=== PATIENT | female | born 1970 | race Two or more races ===

== ENCOUNTER 2017-02-04 10:55 | Day surgery (SDC) | payer OTHER ==
[2017-02-02 15:13] VITALS: BMI 33.9
[2017-02-04] MEDS ORDERED: LIDOCAINE 1%/EPI 1:100000 (50 ML MULTI DOSE VIAL) ONE (15:45)
[2017-02-04] MEDS ORDERED: BUPIVACAINE HCL/PF 0.5% (5MG/ML) 10 ML VIAL ONE (15:45)
[2017-02-04] MEDS ORDERED: PROPOFOL 20 ML ONE ×6 (15:47→16:59)
[2017-02-04] MEDS ORDERED: MIDAZOLAM HCL 2 MG/2 ML SINGLE DOSE VIAL ONE (15:47)
[2017-02-04] MEDS ORDERED: LIDOCAINE 1%/EPI 1:100000 (20 ML MULTI DOSE VIAL) INF ONE ×2 (16:38→17:01)
[2017-02-04] MEDS ORDERED: BUPIVACAINE HCL/PF 0.5% (5MG/ML) 10 ML VIAL IJ ONE ×2 (16:38→17:01)
[2017-02-04] MEDS ORDERED: BACITRACIN 15 GM TUBE TOPICAL OINTMENT ONE (17:05)
[2017-02-04] MEDS ORDERED: ONDANSETRON 4 MG/2 ML VIAL IVPUSH PRN (17:49)
[2017-02-04] MEDS ORDERED: ACETAMINOPHEN 1000 MG/100 ML VIAL (NON FORMULARY) IVPB PRN (17:54)
[2017-02-04] MEDS ORDERED: LACTATED RINGERS SOLUTION 1,000 ML IV SCH (18:00)
[2017-02-04] MEDS ORDERED: OXYCODONE/APAP 5/325MG COMBO TABLET PO PRN (18:05)
[2017-02-04] MEDS ORDERED: oxyCODONE HCL 5 MG TABLET PO PRN (18:16)
[2017-02-04] MEDS ORDERED: ACETAMINOPHEN 325 MG TABLET (FP) PO PRN (18:16)
[2017-02-04 19:00] VITALS: TEMP 98
[2017-02-04] MEDS ORDERED: ACETAMINOPHEN 325 MG TABLET (FP) ONE (19:02)
[2017-02-04 19:48] VITALS: BP 138/80; PULSE 98
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
--- NOTE | 2017-02-09 12:58 | PATH ---
Surgical Pathology Report Patient Name: HALINA KRAFT Med. Rec. #: [id number] /Age/Gender: 1970 (Age: 46) / F Account: [id number] Location: [facility] SURGICAL Taken: 02/07/2017 Received: 02/07/2017 Reported: 02/09/2017 Physicians: Flip Cervantes M.D. Specimen(s) Received A: SCAR TISSUE FROM SCALP B: TUMOR RIGHT LOWER LEG Clinical History Scar of the scalp, right lower extremity tumor Final Diagnosis A. SKIN, SCALP, SCAR TISSUE, EXCISION: BENIGN SKIN WITH DERMAL SCAR WITH HYPERTROPHIC FEATURES. B. SKIN, RIGHT LOWER LEG, TUMOR, EXCISIONAL BIOPSY: CONSISTENT WITH DERMATOFIBROMA (SEE COMMENT). Comment: Immunohistochemical stains performed at [place], [place] ([id number]) on block B1 and interpreted [facility] show the lesional cells are positive for factor XIIIa immunostain, negative for HHV8 immunostain; CD34 shows nonspecific reactivity. These results are supportive of the interpretation above. Electronically Signed Lloyd Caceres M.D. Gross Description A. Received in formalin labeled "scar tissue from scalp" is a 4.8 x 1.0 cm ahumada, elliptical, unoriented portion of skin excised to a depth of 1.0 cm. No definite epidermal lesion is identified. The specimen is inked green and serially sectioned. Electrophonic Engineer sections are submitted in one cassette. B. Received in formalin labeled "tumor of the right lower leg" is a 0.6 cm in diameter ahumada, circular skin punch excised to a depth of 0.3 cm. The base is inked green and the specimen is bisected. The specimen is entirely submitted in one cassette. /02/07/2017 saudi02/07/2017
== END 2017-02-04 19:48 | disposition home or self-care (01) ==
LOC: JASU-SURG 10:55
PROVIDERS: ATTEND Plastic Surgery
PROC: 0JBQ0ZZ Excision of Right Foot Subcutaneous Tissue and Fascia, Open Approach (ICD-10-PCS; 2017-02-04)
PROC: 0HB0XZZ Excision of Scalp Skin, External Approach (ICD-10-PCS; principal; 2017-02-04 13:00)
DX: L91.0 Hypertrophic scar (principal); D23.71 Other benign neoplasm of skin of right lower limb, including hip
CPT/HCPCS: 84703; 88304-TC; 88305-TC; 94760

== ENCOUNTER 2017-06-13 05:40 | Day surgery (SDC) | payer BC ==
[2017-06-10 13:40] VITALS: BMI 33.9
[2017-06-13] MEDS ORDERED: MIDAZOLAM HCL 2 MG/2 ML SINGLE DOSE VIAL ONE (11:39)
[2017-06-13] MEDS ORDERED: SUCCINYLCHOLINE CHLORIDE 200 MG/10 ML VIAL ONE (11:39)
[2017-06-13] MEDS ORDERED: PROPOFOL 20 ML ONE ×2 (11:39)
[2017-06-13] MEDS ORDERED: ROCURONIUM BROMIDE 50 MG/5 ML VIAL ONE (11:39)
[2017-06-13] MEDS ORDERED: LIDOCAINE HCL/PF 2% SDV 5ML VIAL ONE (11:51)
[2017-06-13] MEDS ORDERED: ceFAZolin SODIUM 1 GM VIAL ONE (11:56)
[2017-06-13] MEDS ORDERED: DEXAMETHASONE SOD PHOSPHATE 4 MG/1 ML VIAL ONE (11:56)
[2017-06-13] MEDS ORDERED: NEOSTIGMINE METHYLSULFATE 0.5 MG/ML - 10 ML MDV ONE (12:21)
[2017-06-13] MEDS ORDERED: GLYCOPYRROLATE 0.2 MG/1 ML VIAL ONE (12:21)
[2017-06-13] MEDS ORDERED: ONDANSETRON 4 MG/2 ML VIAL IVPUSH PRN (12:49)
[2017-06-13] MEDS ORDERED: oxyCODONE HCL 5 MG TABLET PO PRN (12:49)
[2017-06-13] MEDS ORDERED: LACTATED RINGERS SOLUTION 1,000 ML IV SCH (13:00)
[2017-06-13] MEDS ORDERED: IBUPROFEN 800 MG/8 ML IJ IVPB PRN (13:18)
[2017-06-13] MEDS ORDERED: IBUPROFEN 400 MG TABLET (FP) PO PRN (13:18)
[2017-06-13] MEDS ORDERED: ACETAMINOPHEN 325 MG TABLET (FP) PO PRN (13:18)
--- NOTE | 2017-06-13 13:18 | HP ---
History & Physical Update - History History: No Change - Physical Physical: No Change - Assessment Assessment: No Change - Plan Plan: No Change
--- NOTE | 2017-06-13 13:24 | OP ---
Operative Note - Note: Operative Date: 06/13/17 Pre-Operative Diagnosis: left ovarian cyst Operation: Laparoscopic left salpingectomy Findings: left fallopian tube cyst Leimyomatous uterus 6 cm left myoma Post-Operative Diagnosis: Same as Pre-op Surgeon: Terrie Salomon Domestic Technician: Stephanie Higginbotham Anesthesia: General Estimated Blood Loss (mls): 3 Operative Report Dictated: Yes
[2017-06-13 14:09] VITALS: TEMP 98.2
[2017-06-13] MEDS ORDERED: ONDANSETRON 4 MG/2 ML VIAL ONE (14:18)
[2017-06-13] MEDS ORDERED: IBUPROFEN 400 MG TABLET (FP) PO ONE (16:40)
[2017-06-13 17:48] VITALS: BP 129/77; PULSE 96
--- NOTE | 2017-06-14 09:03 | OP ---
DATE OF OPERATION: 06/13/2017 PREOPERATIVE DIAGNOSIS: Left ovarian cyst. OPERATION: Laparoscopic left salpingectomy. POSTOPERATIVE DIAGNOSIS: Tubal cyst. SURGEON: Terrie Salomon MD ENT CONSULTANT: Stephanie Higginbotham DO ANESTHESIA: General. DESCRIPTION OF PROCEDURE: Patient was taken to the operating room and placed in dorsal lithotomy position, prepped and draped in the usual sterile fashion. A timeout was performed in accordance with hospital regulation. Garcias catheter was inserted into the bladder. A 5-mm umbilical incision was made. Veress needle was inserted into the cavity. Approximately 3-4 L of CO2 was insufflated in the cavity. Veress needle was then removed, and a 5-mm trocar was then inserted. Two trocars were placed, an 11 mm on the left and a 5 mm on the right. Visualization revealed a left, 6-cm serosal myoma and multiple other myomas on the uterus, as well as some small tubal cysts seen on the left ovary. A LigaSure was attached, and left salpingectomy was performed. Ovary was noted to be normal on the left and ovary was normal on the right and tube on the right was noted to be normal. After tube was removed, hemostasis was achieved. All instruments were then removed. The 11-mm was closed with Sridhar-Mala. Incision was then closed using 4-0 Biosyn in subcuticular fashion. Wound was washed and dressed. The patient tolerated the procedure well. ESTIMATED BLOOD LOSS: 3 mL Jackeline NICHOLE/[id number]
--- NOTE | 2017-06-14 13:16 | PATH ---
Surgical Pathology Report Patient Name: HALINA KRAFT [facility]. Rec. #: [id number] /Age/Gender: 1970 (Age: 47) / F Account: [id number] Location: [facility] Taken: 06/13/2017 Received: 06/13/2017 Reported: 06/14/2017 Physicians: Terrie Salomon M.D. Specimen(s) Received LEFT FALLOPIAN TUBE Clinical History Ovarian cyst, pelvic pain Final Diagnosis LEFT FALLOPIAN TUBE, SALPINGECTOMY: BENIGN FALLOPIAN TUBE WITH BENIGN SEROUS PARATUBAL CYST. Electronically Signed Dwayne Field M.D. Gross Description Received in formalin labeled "left fallopian tube," is a 5.5 cm in length fimbriated fallopian tube. The outer surface is ahumada-pink and smooth with a 0.4 cm in greatest dimension paratubal cyst attached to the fimbria. Sectioning of the fallopian tube reveals an unremarkable lumen. Separately received within the same container is a 1.5 x 0.6 x 0.5 cm additional portion of possible fimbria with a 0.4 cm in greatest dimension attached cyst. Germination Testing Manager sections are submitted in 3 cassettes as follows: 1-fimbria with paratubal cyst; 2-cross sections of fallopian tube; 3-separately received possible fimbria with attached cyst. 06/13/201706/13/2017
--- NOTE | 2017-06-14 13:40 | PN ---
Progress Note (short form) - Note Progress Note: 47F POD1 lap salpingectomy under GA-ETT. Called pt at home to follow-up on patients report of coughing blood tinged mucus this morning. Pt states that pain is well controlled, reports two episodes of coughing, and small amounts of bloody mucous each time. This has resolved, pt doesnt report any hoarseness, SOB , or throat pain. Pt denies fever.
== END 2017-06-13 17:05 | disposition home or self-care (01) ==
LOC: JASU-SURG 05:40
PROVIDERS: ATTEND Obstetrics & Gynecology
PROC: 0UB64ZZ Excision of Left Fallopian Tube, Percutaneous Endoscopic Approach (ICD-10-PCS; principal; 2017-06-13 12:00)
DX: N83.8 Other noninflammatory disorders of ovary, fallopian tube and broad ligament (principal); D25.2 Subserosal leiomyoma of uterus
CPT/HCPCS: 84703; 88305-TC; 94760

== ENCOUNTER 2018-06-20 07:08 | Day surgery (SDC) | payer BC ==
[2018-06-19 11:44] VITALS: BMI 34.9
[2018-06-20] MEDS ORDERED: TETRACAINE/BENZOCAINE/BUTAMBEN 20 GM SPR TP ONE (08:44)
[2018-06-20 12:11] VITALS: BP 147/86; PULSE 72; TEMP 97.6
--- NOTE | 2018-06-22 10:26 | OP ---
DATE OF OPERATION: 06/20/2018 SURGEON: Radha Villa MD PREOPERATIVE DIAGNOSIS: Morbid obesity. POSTOPERATIVE DIAGNOSIS: Normal gross anatomy prior to vertical sleeve gastrectomy. PROCEDURE: Upper endoscopy/esophagogastroduodenoscopy. ANESTHESIA: MAC ESTIMATED BLOOD LOSS: Zero. REASON FOR PROCEDURE: This is a 48-year-old female who is in the process for vertical sleeve gastrectomy for morbid obesity to evaluate the anatomy prior to the procedure. An upper endoscopy/endoscopy was performed. This is a patient who is awaiting a vertical sleeve gastrectomy. In order to evaluate the patient's anatomy and to evaluate anything that would preclude the upcoming vertical sleeve gastrectomy, an upper endoscopy was scheduled. The risks and benefits of the procedure were explained. These included bleeding; infection; sore throat; trauma to the teeth, gums, or oral cavity; rapid or irregular heart beat; respiratory failure; aspiration; hypotension or low blood pressure; damage to the esophagus, stomach, or nearby structures; damage to the intestines; perforation; leak; and . Patient understood and signed informed consent. DESCRIPTION OF PROCEDURE: The patient was placed in the left lateral decubitus position. The patient had signed informed consent. All mechanical and medical equipment was checked for proper function. Hand hygiene and appropriate measures for infection prevention were taken. After the risks, benefits, and alternatives of the procedure were thoroughly explained and informed consent was verified, timeout was performed. The patient was anesthetized, and the endoscope was introduced through the mouth. The endoscope was advanced into the esophagus, GE junction, stomach, up to the level of the pylorus. Gross anatomy was noted to be within normal limits without any gross lesions or ulcers that would preclude the upcoming surgery. The stomach was suctioned, and the endoscope slowly withdrawn and removed. The patient tolerated the procedure well and was transferred to the recovery room in stable condition. RADHA VILLA M.D. [id number]
== END 2018-06-20 10:10 | disposition home or self-care (01) ==
LOC: JASU-ENDO 07:08
PROVIDERS: ATTEND Surgery
PROC: 0DJ08ZZ Inspection of Upper Intestinal Tract, Via Natural or Artificial Opening Endoscopic (ICD-10-PCS; principal; 2018-06-20 08:00)
DX: Z01.818 Encounter for other preprocedural examination (principal); E66.01 Morbid (severe) obesity due to excess calories
CPT/HCPCS: 84703

== ENCOUNTER 2018-08-01 06:32 | Inpatient (IN) | payer BC ==
[2018-07-31 13:59] VITALS: BMI 34.9
[2018-08-01] MEDS ORDERED: BUPIVACAINE HCL/PF 0.5% (5MG/ML) 10 ML VIAL ONE (07:03)
[2018-08-01] MEDS ORDERED: LIDOCAINE HCL/PF 2% SDV 5ML VIAL ONE (07:07)
[2018-08-01] MEDS ORDERED: SUCCINYLCHOLINE CHLORIDE 200 MG/10 ML VIAL ONE (07:07)
[2018-08-01] MEDS ORDERED: ROCURONIUM BROMIDE 50 MG/5 ML VIAL ONE (07:07)
[2018-08-01] MEDS ORDERED: DEXAMETHASONE SOD PHOSPHATE 4 MG/1 ML VIAL ONE ×2 (07:07→10:36)
[2018-08-01] MEDS ORDERED: PROPOFOL 20 ML ONE ×2 (07:07→09:02)
[2018-08-01] MEDS ORDERED: fentaNYL CITRATE 250 MCG/5 ML VIAL ONE (07:07)
[2018-08-01] MEDS ORDERED: DEXAMETHASONE SOD PHOSPHATE/PF 10 MG/ML SDV ONE (07:51)
[2018-08-01] MEDS ORDERED: ROPIVACAINE HCL 0.5% 30ML VIAL ONE (07:51)
[2018-08-01] MEDS ORDERED: MIDAZOLAM HCL 2 MG/2 ML SINGLE DOSE VIAL ONE ×2 (07:53)
--- NOTE | 2018-08-01 07:57 | HP ---
Admitting History and Physical - Admission Chief Complaint: Morbid obesity History Source: Patient Limitations to Obtaining History: No Limitations - Past Medical History Cardiovascular: Yes: HTN, Hyperlipdemia Pulmonary: Yes: Sleep Apnea ...LMP: 02/22/18 - Smoking History Smoking history: Never smoked Aproximately how many cigarettes per day: 0 - Alcohol/Substance Use Hx Alcohol Use: No Home Medications - Allergies Allergies/Adverse Reactions: Allergies Allergy/AdvReac Type Severity Reaction Status Date / Time EGG WHITE Allergy Intermediate "ITCHY" Uncoded 08/01/18 07:26 SEASONAL Allergy Uncoded 08/01/18 07:26 - Home Medications Home Medications: Ambulatory Orders Aspirin [ASA -] 81 mg PO DAILY 07/02/13 Ubidecarenone [Co Q-10] 10 mg PO DAILY 07/02/13 Rosuvastatin Calcium [Crestor] 5 mg PO HS 03/11/14 Cholecalciferol (Vitamin D3) [Vitamin D3 -] 1,000 unit PO DAILY 06/10/17 Ibuprofen [Motrin -] 600 mg PO QID PRN #28 tablet 06/13/17 Icosapent Ethyl [Vascepa] 2 gm PO BID 06/19/18 Family Disease History - Family Disease History Family History: Denies Review of Systems - Review of Systems Constitutional: denies: Chills, Fever Neck: reports: No Symptoms Cardiovascular: reports: No Symptoms Respiratory: reports: No Symptoms Gastrointestinal: reports: No Symptoms Neurological: reports: No Symptoms Pain Intensity: 0 Physical Examination Vital Signs: Vital Signs Temperature 98.2 F 08/01/18 07:24 Pulse Rate 84 08/01/18 07:24 Respiratory Rate 20 08/01/18 07:24 Blood Pressure 129/74 08/01/18 07:24 O2 Sat by Pulse Oximetry (%) 98 08/01/18 07:18 Constitutional: Yes: No Distress Cardiovascular: Yes: WNL Respiratory: Yes: WNL Gastrointestinal: Yes: Soft, Abdomen, Obese Neurological: Yes: Alert, Oriented Problem List - Problems (1) Morbid obesity due to excess calories Code(s): E66.01 - MORBID (SEVERE) OBESITY DUE TO EXCESS CALORIES Assessment/Plan Morbid obesity For laparoscopic possible open vertical sleeve gastrectomy possible liver biopsy , EGD
[2018-08-01] MEDS ORDERED: ceFAZolin SODIUM 1 GM VIAL ONE (09:17)
[2018-08-01] MEDS ORDERED: GLYCOPYRROLATE 0.2 MG/1 ML VIAL ONE (10:34)
[2018-08-01] MEDS ORDERED: NEOSTIGMINE METHYLSULFATE 0.5 MG/ML - 10 ML MDV ONE (10:34)
[2018-08-01] MEDS ORDERED: HYDROmorphone HCl 2 MG/ML VIAL IVPB PRN (10:49)
--- NOTE | 2018-08-01 10:56 | OP ---
Operative Note - Note: Operative Date: 08/01/18 Pre-Operative Diagnosis: Morbid obesity. Hypertension Operation: Diagnositc laparoscopy. Laparoscopic vertical sleeve gastrectomy, wedge liver biopsy. EGD Post-Operative Diagnosis: Other (Morbid obesity, hypertension, hepatomegaly) Surgeon: Jerrod Villa Confectionery Drops Machine Operator: Charlotte Saunders Anesthesia: General Specimens Removed: Greater curvature of stomach. Liver biopsy Estimated Blood Loss (mls): 30 Drains & Tubes with Location: 36 fr Bougie Operative Report Dictated: Yes
[2018-08-01] MEDS ORDERED: METOCLOPRAMIDE HCL INJECTION 10 MG/2 ML VIAL IVPUSH SCH (11:00)
--- NOTE | 2018-08-01 11:09 | SURG ---
Surgery Physical Metallurgist Note Physical Metallurgist: Charlotte Saunders PA-C Date of Service: 08/01/18 Diagnosis: Morbid obesity. Hypertension Procedure: Diagnositc laparoscopy. Laparoscopic vertical sleeve gastrectomy, wedge liver biopsy. EGD I was present for the entirety of the operative procedure. For further detail, please refer to operative report. Visit type - Case Type Case Type: Scheduled - Emergency Emergency Visit: No - New patient This patient is new to me today: Yes Date on this admission: 08/01/18
--- NOTE | 2018-08-01 11:28 | SPEC ---
DATE OF OPERATION: 08/01/2018 SURGEON: Radha Villa MD PREOPERATIVE DIAGNOSIS: Morbid obesity, uncontrolled hypertension. POSTOPERATIVE DIAGNOSIS: Morbid obesity, uncontrolled hypertension, as well as hepatomegaly. PROCEDURE: 1. Diagnostic laparoscopy. 2. Laparoscopic vertical sleeve gastrectomy. 3. Laparoscopic wedge liver biopsy. 4. Upper endoscopy/esophagogastroduodenoscopy. 5. Oversewing of gastric staple line. BOUGIE: Size 36 Kinyarwanda. ESTIMATED BLOOD LOSS: 30 mL. DRAINS: None. ANESTHESIA: GET. SPECIMENS: 1. Greater curvature of the stomach. 2. Liver biopsy. REASON FOR PROCEDURE: This is a 48-year-old female who presented to the office for evaluation for weight loss options. After describing different options, she decided to proceed with laparoscopic possible open vertical sleeve gastrectomy, possible liver biopsy and upper endoscopy. RISKS AND BENEFITS: After describing the different options for weight loss management, the patient decided to proceed with a laparoscopic, possible open vertical sleeve gastrectomy. The patient was seen by the respective subspecialties and cleared for surgery. The risks and benefits of the procedure were explained. These included bleeding, infection, hernia, UT, DVT, PE, injury to surrounding structures including the liver, colon, bowel, spleen, esophagus, vessel injury, nerve injury, weight regain, gastric leak, staple line leak, sleeve leak, obstruction, vitamin deficiency, hair loss and as some of the possible complications. The patient understood and signed informed consent. DESCRIPTION OF PROCEDURE: The patient was placed supine on the operating room table. The patient underwent general endotracheal intubation. The arms were brought out at 90 degrees and secured. A footboard was placed and the legs were secured laterally with padding. The abdomen was prepped and draped in the usual sterile fashion. A timeout was performed. An incision was made in the left upper quadrant and a Veress needle inserted. Pneumoperitoneum was established. Subsequently, the Veress needle was removed and a 5-mm trocar was placed under direct visualization with the laparoscope. The laparoscopic camera was then inserted and inspection of the abdominal cavity was performed. An incision was then made in the supraumbilical area and a 15-mm trocar was placed under direct visualization. A 5-mm trocar was then placed in the right upper quadrant and a 5-mm trocar was placed below the left subcostal margin. A stab wound was made in the subxiphoid area and a Nereida clamp inserted and removed to dilate the tract. A Nano liver retractor was inserted. The post was secured at the bedside by the nursing staff. The patient was placed in steep reverse Trendelenburg position and the Nano liver retractor was used to secure the liver towards the anterior abdominal wall. The pylorus was identified and 6 cm proximal to it, the lesser sac was entered using the LigaSure device. All lateral attachments to the greater curvature of the stomach, including the short gastric vessels, were ligated using the LigaSure device toward the gastrosplenic and gastrophrenic ligaments. Once this was done in its entirety, it was confirmed that all tubes within the nasal or oropharyngeal cavity, including a temperature probe, was removed by Anesthesia. The bougie was then inserted by Anesthesia. Transection of the stomach was then begun staying adjacent to the bougie but away from the angularis. Transection of the stomach was performed near the portion of the stomach where the lesser sac was entered. Two laparoscopic Endo-SHANE black jessica were used at this location. Laparoscopic Endo SHANE purple staple loads were then used for the remainder of the transection until the greater curvature of the stomach was fully transected. This was done staying close to the bougie. Care was taken to stay away from the angle of His cephalad. The staple line was then inspected. Hemostasis was identified. A leak test was then performed. It was clamped distally to the staple line. Irrigation solution was placed in the left upper quadrant and air was insufflated by Anesthesia into the sleeve. No leaks were identified. No obstruction was identified. This was done through the entirety of the staple line. In addition, an upper endoscopy was performed. The endoscope was placed into the patients mouth and the entirety of the esophagus, GE junction, gastric pouch and staple line were inspected. No obstruction or leak was noted. The stomach was suctioned and the endoscope removed fully intact. At this point, the irrigation solution was suctioned and again, hemostasis was noted. A wedge liver biopsy was then performed. The left lobe of the liver was identified and a portion of the edge was grasped. Using electrocautery, a wedge of the liver was excised. This was removed and sent off the field as specimen. Hemostasis at the site of the wedge liver biopsy was attained using electrocautery. The 15-mm supraumbilical trocar was then removed and the greater curvature specimen removed from the site using a sponge stick alexander. The specimen was inspected and a Veress needle inserted. The specimen insufflated adequately and no leak was identified. The staple line was noted to be intact. A Sridhar-Mala device was then used to close the fascia with a 0 Vicryl suture at the site. Again, hemostasis was noted. The Nano liver retractor was then removed under direct visualization. Pneumoperitoneum was desufflated and the fascial sutures were secured. Hemostasis was noted at all incision sites and Marcaine was injected at all incision sites. All incision sites were closed using 4-0 Biosyn. Sterile dressings were applied. The patient tolerated the procedure well and was transferred to the recovery room in stable condition. The patient was transferred to telemetry for further monitoring. RADHA VILLA M.D. [id number]
[2018-08-01 11:42] LABS: HEMATOCRIT 39.3 % (32.4-45.2); HEMOGLOBIN 13.1 GM/dL (10.7-15.3); MCH 25.2 pg (25.7-33.7); MCHC 33.2 g/dl (32.0-36.0); MEAN PLT VOLUME 7.7 fl (7.5-11.1); PLATELET COUNT 238 K/MM3 (134-434); RBC 5.17 M/mm3 (3.60-5.2); RDW 15.1 % (11.6-15.6); WHITE BLOOD COUNT 7.7 K/mm3 (4.0-10.0)
[2018-08-01] MEDS: ONDANSETRON 4 MG/2 ML VIAL IVPUSH SCH ×4 (12:00→23:35)
[2018-08-01 12:16] LABS: ALBUMIN 3.8 g/dl (3.4-5.0); ALK PHOS 47 U/L (45-117); ANION GAP 9 MMOL/L (8-16); BILIRUBIN,TOTAL 0.4 mg/dL (0.2-1); BLOOD UREA NITROGEN 16 mg/dL (7-18); CALCIUM 8.2 mg/dL (8.5-10.1); CHLORIDE 108 mmol/L (98-107); CO2 24 mmol/L (21-32); CREATININE 0.8 mg/dL (0.55-1.3); GLUCOSE,RANDOM 149 mg/dL (74-106); POTASSIUM 4.1 mmol/L (3.5-5.1); SGOT/AST 82 U/L (15-37); SGPT/ALT 85 U/L (13-61); SODIUM 141 mmol/L (136-145); TOT PROT 7.2 g/dl (6.4-8.2)
[2018-08-01] MEDS: ACETAMINOPHEN 1000 MG/100 ML VIAL (NON FORMULARY) IVPB SCH ×3 (12:20→23:30)
[2018-08-01] MEDS ORDERED: ADENOSINE 6 MG/2 ML VIAL IVPUSH ONE (13:45)
[2018-08-01] MEDS: SODIUM CHLORIDE 1,000 ML IV SCH (14:45)
--- NOTE | 2018-08-01 15:26 | PN ---
Progress Note (short form) - Note Progress Note: Called to the PACU earlier for an episode of SVT post-op. Pt. otherwise stable with no chest pain or shortness of breath. Adenosine 6mg, 6mg, 12mg given with sustained SVT. Esmlol 10mg given with reversion to sinus rhythm. Pt.s healthcare consultant made aware.
--- NOTE | 2018-08-01 15:33 | EKG ---
Test Reason : Blood Pressure : / mmHG Vent. Rate : 185 BPM Atrial Rate : 185 BPM P-R Int : 130 ms QRS Dur : 080 ms QT Int : 246 ms P-R-T Axes : 021 -07 203 degrees QTc Int : 431 ms SUPRAVENTRICULAR TACHYCARDIA WITH 2:1 A-V CONDUCTION LOW VOLTAGE QRS MARKED ST ABNORMALITY, POSSIBLE INFEROLATERAL SUBENDOCARDIAL INJURY ABNORMAL ECG WHEN COMPARED WITH ECG OF 12-MAR-2014 07:34, AL INTERVAL HAS DECREASED VENT. RATE HAS INCREASED BY [address] NOW DEPRESSED IN INFERIOR LEADS ST NOW DEPRESSED IN ANTEROLATERAL LEADS T WAVE INVERSION NOW EVIDENT IN ANTEROLATERAL LEADS Confirmed by Alonzo Mckeon ([id number]) on 08/01/2018 3:33:27 PM Referred By: Jerrod Villa Confirmed By:Alonzo Mckeon
[2018-08-01] MEDS: FAMOTIDINE 20 MG/50 ML IVPB 20 MG/50 ML MG IVPB SCH (22:36)
[2018-08-01] MEDS: METOCLOPRAMIDE HCL INJECTION 10 MG/2 ML VIAL IVPUSH SCH (22:36)
[2018-08-01] MEDS: ENOXAPARIN NA (PORCINE) 40 MG/0.4 ML DISP.SYRIN SQ SCH (22:36)
[2018-08-02] MEDS: METOCLOPRAMIDE HCL INJECTION 10 MG/2 ML VIAL IVPUSH SCH ×3 (04:30→14:51)
[2018-08-02] MEDS: ONDANSETRON 4 MG/2 ML VIAL IVPUSH SCH ×4 (04:30→14:51)
[2018-08-02] MEDS: ACETAMINOPHEN 1000 MG/100 ML VIAL (NON FORMULARY) IVPB SCH (06:54)
[2018-08-02 07:28] LABS: HEMATOCRIT 35.5 % (32.4-45.2); HEMOGLOBIN 11.9 GM/dL (10.7-15.3); MCH 25.5 pg (25.7-33.7); MCHC 33.6 g/dl (32.0-36.0); MEAN CELL VOLUME 75.9 fl (80-96); MEAN PLT VOLUME 7.7 fl (7.5-11.1); PLATELET COUNT 246 K/MM3 (134-434); RBC 4.68 M/mm3 (3.60-5.2); RDW 14.8 % (11.6-15.6)
[2018-08-02 08:17] LABS: ALBUMIN 3.2 g/dl (3.4-5.0); ALK PHOS 40 U/L (45-117); ANION GAP 9 MMOL/L (8-16); BILIRUBIN,TOTAL 0.6 mg/dL (0.2-1); BLOOD UREA NITROGEN 10 mg/dL (7-18); CALCIUM 8.1 mg/dL (8.5-10.1); CHLORIDE 104 mmol/L (98-107); CO2 25 mmol/L (21-32); CREATININE 0.7 mg/dL (0.55-1.3); GLUCOSE,RANDOM 105 mg/dL (74-106); POTASSIUM 3.8 mmol/L (3.5-5.1); SGOT/AST 43 U/L (15-37); SGPT/ALT 64 U/L (13-61); SODIUM 138 mmol/L (136-145); TOT PROT 6.5 g/dl (6.4-8.2)
--- NOTE | 2018-08-02 08:30 | PN ---
Progress Note (short form) - Note Progress Note: Post op day#1.S/P Laproscopic gastric sleeve,EGD and liver biopsy under GA uneventful.Patient stable.No any anesthesia related problem.Patient Dc from the anesthesia care.
--- NOTE | 2018-08-02 08:51 | CON.CARD ---
Consult Consult Specialty:: Cardiology Referred by:: Jerrod Villa MD Reason for Consultation:: PSVT - History of Present Illness History of Present Illness: 48 yo morbid obesity, hypertension, mixed hyperlipidemia, chest pain with negative cath, diastolic dysfunction POD#1 diagnositc laparoscopy, laparoscopic vertical sleeve gastrectomy, wedge liver biopsy and EG under GA. She developed episode of SVT post-op broke with adenosine and beta lalit, was off Inderal 2 days prior to surgery. Pt remained asymptomatic and denies chest pain, dyspnea, palpitations, near or true syncope, no recurrence of PSVT on telemetry. - History Source History Provided By: Patient Limitations to Obtaining History: No Limitations - Past Medical History Cardio/Vascular: Yes: HTN, Hyperlipdemia Pulmonary: Yes: Sleep Apnea ...LMP: 02/22/18 - Alcohol/Substance Use Hx Alcohol Use: No - Smoking History Smoking history: Never smoked Aproximately how many cigarettes per day: 0 Home Medications - Allergies Allergies/Adverse Reactions: Allergies Allergy/AdvReac Type Severity Reaction Status Date / Time Egg Derived Allergy Verified 08/01/18 15:21 EGG WHITE Allergy Intermediate "ITCHY" Uncoded 08/01/18 07:26 SEASONAL Allergy Uncoded 08/01/18 07:26 - Home Medications Home Medications: Ambulatory Orders Aspirin [ASA -] 81 mg PO DAILY 07/02/13 Ubidecarenone [Co Q-10] 10 mg PO DAILY 07/02/13 Rosuvastatin Calcium [Crestor] 5 mg PO HS 03/11/14 Cholecalciferol (Vitamin D3) [Vitamin D3 -] 1,000 unit PO DAILY 06/10/17 Ibuprofen [Motrin -] 600 mg PO QID PRN #28 tablet 06/13/17 Icosapent Ethyl [Vascepa] 2 gm PO BID 06/19/18 Famotidine [Pepcid] 20 mg PO BID #60 tablet 08/01/18 Oxycodone HCl/Acetaminophen [Percocet 5-325 mg Tablet] 1 - 2 tab PO Q6H #28 tab MDD 4 08/01/18 Family Disease History - Family Disease History Family Disease History: Diabetes: Mother (Hypertension, hyperlipidemia), Heart Disease: Mother Vital Signs: Vital Signs Temperature 97.8 F 08/02/18 06:00 Pulse Rate 73 08/02/18 06:00 Respiratory Rate 20 08/02/18 06:00 Blood Pressure 133/73 08/02/18 06:00 O2 Sat by Pulse Oximetry (%) 97 08/01/18 22:00 Constitutional: Yes: No Distress, Calm Neck: Yes: Supple Respiratory: Yes: Regular, CTA Bilaterally Gastrointestinal: Yes: Normal Bowel Sounds, Soft, Abdomen, Obese Cardiovascular: Yes: Regular Rate and Rhythm JVD: No Carotid Bruit: No Heart Sounds: Yes: S1, S2 Edema: No - Other Data Labs, Other Data: CBC, BMP 08/02/18 07:00 08/02/18 07:00 Problem List - Problems (1) Status post bariatric surgery Code(s): Z98.84 - BARIATRIC SURGERY STATUS (2) Hyperlipidemia Code(s): E78.5 - HYPERLIPIDEMIA, UNSPECIFIED Qualifiers: Hyperlipidemia type: mixed hyperlipidemia Qualified Code(s): E78.2 - Mixed hyperlipidemia (3) Paroxysmal supraventricular tachycardia Code(s): I47.1 - SUPRAVENTRICULAR TACHYCARDIA (4) Hypertensive cardiovascular disease Code(s): I11.9 - HYPERTENSIVE HEART DISEASE WITHOUT HEART FAILURE Qualifiers: Heart failure presence: without heart failure Qualified Code(s): I11.9 - Hypertensive heart disease without heart failure (5) Diastolic dysfunction Code(s): I51.9 - HEART DISEASE, UNSPECIFIED (6) Morbid obesity due to excess calories Code(s): E66.01 - MORBID (SEVERE) OBESITY DUE TO EXCESS CALORIES Assessment/Plan Echo: January 05, 2018 Normal LV amd RV size and fxn, LVEF 55-60%, mild MR, mild- mod AR, mild-mod TR Stress echo: February 24, 2018 No ischemia after reaching 85% [facility]: Aug 02, 2016 Normal coronary arteries, normal LV fxn 1. PSVT->NSR 2. POD#1 Diagnositc laparoscopy, laparoscopic vertical sleeve gastrectomy, wedge liver biopsy and EGD 3. Diastolic dysfunction 4. Hypertensive cardiovascular disease 5. Hyperlipidemia P:1. Continue Inderal LA 120 bid, resume Crestor 5 qd, Vascepa 2 bid once LFTs normalize, resume ASA 81 qd once hemostasis achieved 2. Routine post-op care 3. Consider EP study, RFA as outpatient if PSVT recurs despite meds, patient has f/u with Dr. Loya. 4. Thank you for consultative opportunity
[2018-08-02] MEDS ORDERED: PT OWN MED DRAWER 7, Y5N ONE (10:14)
[2018-08-02] MEDS: FAMOTIDINE 20 MG/50 ML IVPB 20 MG/50 ML MG IVPB SCH (10:17)
[2018-08-02] MEDS: ENOXAPARIN NA (PORCINE) 40 MG/0.4 ML DISP.SYRIN SQ SCH (10:17)
[2018-08-02] MEDS: SODIUM CHLORIDE 1,000 ML IV SCH (11:58)
--- NOTE | 2018-08-02 13:07 | DS ---
Physical Exam: SUBJECTIVE: Patient seen and examined. Alert. C/o mild incisional tenderness. Adequate pain control with meds as ordered. OOB and ambulating unassisted. Had her UGI this morning which didn't show and leak, extravasation or outlet obstruction. Patient had 1 episode of PSVT in PACU... broke rhythm with Adenosine and beta heidi. Cardio consult apprecitaed. Denies n/v/f/c, CO, SOB , palpitations, DELUNA, dizzy or weak. OBJECTIVE: Vital Signs Temperature 97.9 F 08/02/18 09:05 Pulse Rate 77 08/02/18 09:05 Respiratory Rate 20 08/02/18 09:05 Blood Pressure 135/73 08/02/18 09:05 O2 Sat by Pulse Oximetry (%) 99 08/02/18 09:00 PHYSICAL EXAM GENERAL: The patient is awake, alert, and fully oriented, in no acute distress. HEAD: Normal with no signs of trauma. NECK: Trachea midline, full range of motion, supple. LUNGS: CTA bilat HEART: RRR ABDOMEN: Obese habitus. All surgical ports c/d/i. No hematoma. EXTREMITIES: 2+ pulses, warm, well-perfused, no edema. NEUROLOGICAL: Cranial nerves II through XII grossly intact. Normal speech, gait not observed. PSYCH: Normal mood, normal affect. SKIN: Warm, dry, normal turgor, no rashes or lesions noted. LABS CBC,CMP WBC 11.0 K/mm3 (4.0-10.0) H 08/02/18 07:00 RBC 4.68 M/mm3 (3.60-5.2) 08/02/18 07:00 Hgb 11.9 GM/dL (10.7-15.3) 08/02/18 07:00 Hct 35.5 % (32.4-45.2) 08/02/18 07:00 MCV 75.9 fl (80-96) L 08/02/18 07:00 MCH 25.5 pg (25.7-33.7) L 08/02/18 07:00 MCHC 33.6 g/dl (32.0-36.0) 08/02/18 07:00 RDW 14.8 % (11.6-15.6) 08/02/18 07:00 Plt Count 246 K/MM3 (134-434) 08/02/18 07:00 MPV 7.7 fl (7.5-11.1) 08/02/18 07:00 Sodium 138 mmol/L (136-145) 08/02/18 07:00 Potassium 3.8 mmol/L (3.5-5.1) 08/02/18 07:00 Chloride 104 mmol/L (98-107) 08/02/18 07:00 Carbon Dioxide 25 mmol/L (21-32) 08/02/18 07:00 Anion Gap 9 MMOL/L (8-16) 08/02/18 07:00 BUN 10 mg/dL (7-18) 08/02/18 07:00 Creatinine 0.7 mg/dL (0.55-1.3) 08/02/18 07:00 Creat Clearance w eGFR > 60 (>60) 08/02/18 07:00 Random Glucose 105 mg/dL (74-106) 08/02/18 07:00 Calcium 8.1 mg/dL (8.5-10.1) L 08/02/18 07:00 Total Bilirubin 0.6 mg/dL (0.2-1) 08/02/18 07:00 AST 43 U/L (15-37) H 08/02/18 07:00 ALT 64 U/L (13-61) H 08/02/18 07:00 Alkaline Phosphatase 40 U/L (45-117) L 08/02/18 07:00 Total Protein 6.5 g/dl (6.4-8.2) 08/02/18 07:00 Albumin 3.2 g/dl (3.4-5.0) L 08/02/18 07:00 Serum , Qual Negative 08/01/18 06:50 HOSPITAL COURSE: Date of Admission:08/01/18 Date of Discharge: 08/02/18 Patient was admitted to Med-Surg Unit s/p Laprascopic Sleeve Gastrectomy with Liver wedge biopsy. Patient had one episode of PSVT in PACU. Rhythm broken with Adenosisne and Beta Heidi. No other arrhythmias since initial event. Placed on Telemetry for continued observation. Cardio Consult was called to Dr. Dany Jauregui. He recommends the followin. Continue Inderal LA 120 bid 2. Resume Crestor 5 qd 3. Vascepa 2 bid once LFTs normalize 4. ASA 81 qd 5. Consider EP study 6. f/u with Dr. Loya as out-patient POD #1 pateint had UGI and considered negative study as evidneced by flow of contrast through pyloric sphincter...no leak/extravastion or gastric outlet obstruction. Minutes to complete discharge: 36 Visit type - Case Type Case Type: Scheduled - New patient This patient is new to me today: Yes Date on this admission: 08/02/18
--- NOTE | 2018-08-02 17:12 | PATH ---
Surgical Pathology Report Patient Name: HALINA KRAFT [facility]. Rec. #: [id number] /Age/Gender: 1970 (Age: 48) / F Account: [id number] Location: 4 W TELEMETRY U Taken: 08/01/2018 Received: 08/01/2018 Reported: 08/02/2018 Physicians: Jerrod Villa M.D. Specimen(s) Received A: GREATER CURVATURE STOMACH B: LIVER BIOPSY Clinical History Morbid obesity Final Diagnosis A. STOMACH, GREATER CURVATURE, LAPAROSCOPIC VERTICAL SLEEVE GASTRECTOMY: PORTION OF STOMACH WITH MILD CHRONIC GASTRITIS. IMMUNOHISTOCHEMICAL STAIN FOR H. PYLORI IS NEGATIVE. B. LIVER, BIOPSY: LIVER PARENCHYMA WITH MILD PATCHY STEATOSIS (~25-30%). NO INCREASE IN IRON AND FIBROSIS ON PERFORMED SPECIAL STAINS (IRON AND TRICHROME). Electronically Signed Edna Spangler M.D. Gross Description A. Received in formalin, labeled "greater curvature of stomach," is a 94 gram, 15.0 x 3.5 x 3.0 cm. portion of stomach with a stapled margin of resection. The serosa is ahumada-joshua with minimal attached fat. The mucosa is ahumada-pink with normal folds. No mucosal masses are identified. [facility] Adoles[facility]iat[facility] sections are submitted in one cassette. B. Received in formalin labeled "liver biopsy," is a 2.5 x 1.4 x 0.6 cm ahumada, irregular portion of soft tissue, consistent with a liver biopsy. Child And Adolescent Psychiatrist sections are submitted in one cassette. DL/08/01/2018 saudi08/01/2018
[2018-08-02 19:30] VITALS: BP 125/75; PULSE 77; TEMP 98
[2018-08-02] MEDS ORDERED: oxyCODONE HCL 5 MG TABLET PO PRN (19:52)
--- NOTE | 2018-08-02 19:52 | PN ---
Progress Note (short form) - Note Progress Note: POD 1 Laparoscopic vertical sleeve gastrectomy, liver biopsy, EGD Pain controlled One episode of SVT treated with medication No further episodes Cardiology consulted Recommendations include Inderal 120mg PO bidd No chest pain, dizziness, or shortness of breath No nausea Vital Signs Period Temp Pulse Resp BP Sys/Dumas Pulse Ox Last 24 Hr 97.8 F-98.3 F 71-81 18-20 125-144/73-82 97-99 Abd soft CBC,CMP WBC 11.0 K/mm3 (4.0-10.0) H 08/02/18 07:00 RBC 4.68 M/mm3 (3.60-5.2) 08/02/18 07:00 Hgb 11.9 GM/dL (10.7-15.3) 08/02/18 07:00 Hct 35.5 % (32.4-45.2) 08/02/18 07:00 MCV 75.9 fl (80-96) L 08/02/18 07:00 MCH 25.5 pg (25.7-33.7) L 08/02/18 07:00 MCHC 33.6 g/dl (32.0-36.0) 08/02/18 07:00 RDW 14.8 % (11.6-15.6) 08/02/18 07:00 Plt Count 246 K/MM3 (134-434) 08/02/18 07:00 MPV 7.7 fl (7.5-11.1) 08/02/18 07:00 Sodium 138 mmol/L (136-145) 08/02/18 07:00 Potassium 3.8 mmol/L (3.5-5.1) 08/02/18 07:00 Chloride 104 mmol/L (98-107) 08/02/18 07:00 Carbon Dioxide 25 mmol/L (21-32) 08/02/18 07:00 Anion Gap 9 MMOL/L (8-16) 08/02/18 07:00 BUN 10 mg/dL (7-18) 08/02/18 07:00 Creatinine 0.7 mg/dL (0.55-1.3) 08/02/18 07:00 Creat Clearance w eGFR > 60 (>60) 08/02/18 07:00 Random Glucose 105 mg/dL (74-106) 08/02/18 07:00 Calcium 8.1 mg/dL (8.5-10.1) L 08/02/18 07:00 Total Bilirubin 0.6 mg/dL (0.2-1) 08/02/18 07:00 AST 43 U/L (15-37) H 08/02/18 07:00 ALT 64 U/L (13-61) H 08/02/18 07:00 Alkaline Phosphatase 40 U/L (45-117) L 08/02/18 07:00 Total Protein 6.5 g/dl (6.4-8.2) 08/02/18 07:00 Albumin 3.2 g/dl (3.4-5.0) L 08/02/18 07:00 Serum , Qual Negative 08/01/18 06:50 UGI: no evidence of leak/obstruction Clears Discharge home Follow up with Cardiology as outpatient Continue Inderal PO bid Problem List - Problems (1) Morbid obesity due to excess calories Code(s): E66.01 - MORBID (SEVERE) OBESITY DUE TO EXCESS CALORIES
[2018-08-02] MEDS ORDERED: SODIUM CHLORIDE 1,000 ML IV SCH (20:00)
--- NOTE | 2018-10-06 20:31 | EKG ---
Test Reason : Blood Pressure : / mmHG Vent. Rate : 105 BPM Atrial Rate : 090 BPM P-R Int : 000 ms QRS Dur : 078 ms QT Int : 426 ms P-R-T Axes : 000 -07 005 degrees QTc Int : 563 ms NORMAL SINUS RHYTHM first degree avb PROLONGED QT ABNORMAL ECG Confirmed by ELISABETH GARCIA MD ([id number]) on 10/06/2018 8:31:05 PM Referred By: Jerrod Villa Confirmed By:ELISABETH GARCIA MD
== END 2018-08-02 20:00 | disposition home or self-care (01) | DRG 620 ==
LOC: JSAMEDAYSX 06:32 → J4W 16:24
PROVIDERS: ADMIT Surgery; ATTEND Surgery
PROC: 0FB20ZX Excision of Left Lobe Liver, Open Approach, Diagnostic (ICD-10-PCS; 2018-08-01)
PROC: 0DJ08ZZ Inspection of Upper Intestinal Tract, Via Natural or Artificial Opening Endoscopic (ICD-10-PCS; 2018-08-01)
PROC: 0DB60Z3 Excision of Stomach, Open Approach, Vertical (ICD-10-PCS; principal; 2018-08-01 08:30)
DX: E66.01 Morbid (severe) obesity due to excess calories (principal); I97.191 Other postprocedural cardiac functional disturbances following other surgery; I47.1 Supraventricular tachycardia; I50.30 Unspecified diastolic (congestive) heart failure; Z68.36 Body mass index [BMI] 36.0-36.9, adult; I11.0 Hypertensive heart disease with heart failure; I10 Essential (primary) hypertension; E78.5 Hyperlipidemia, unspecified; G47.30 Sleep apnea, unspecified; R16.0 Hepatomegaly, not elsewhere classified; Y83.8 Other surgical procedures as the cause of abnormal reaction of the patient, or of later complication, without mention of misadventure at the time of the procedure
CPT/HCPCS: 36415; 74241-TC-FY; 80053; 84703; 85027; 86850; 86900; 86901; 88307-TC; 93005; 93010; 94010; 94760; J0131; J7030

== ENCOUNTER 2020-12-07 08:56 | Emergency (ER) | payer OTHER ==
[2020-12-07 09:07] VITALS: BP 127/79; PULSE 68; TEMP 98; BMI 24.1
[2020-12-07] MEDS ORDERED: KETOROLAC TROMETHAMINE 30 MG/1 ML VIAL IM ONE (09:48)
[2020-12-07] MEDS ORDERED: KETOROLAC TROMETHAMINE 30 MG/1 ML VIAL ONE (09:53)
== END 2020-12-07 10:33 | disposition home or self-care (01) ==
LOC: JER 08:56
PROC: 3E0233Z Introduction of Anti-inflammatory into Muscle, Percutaneous Approach (ICD-10-PCS; principal; 2020-12-07)
DX: M54.5 Low back pain (principal); R51.9 Headache, unspecified
CPT/HCPCS: 99284-25

== ENCOUNTER 2022-08-13 16:27 | Emergency (ER) | payer OTHER ==
[2022-08-13 16:53] VITALS: BP 148/84; PULSE 70; RESP 18; TEMP 97.6; BMI 24.3
[2022-08-13] MEDS ORDERED: ACETAMINOPHEN 325 MG TABLET (FP) PO ONE (17:48)
[2022-08-13] MEDS ORDERED: ACETAMINOPHEN 325 MG TABLET (FP) ONE (18:05)
== END 2022-08-13 19:38 | disposition home or self-care (01) ==
LOC: JERFT 16:27
DX: S82.831A Other fracture of upper and lower end of right fibula, initial encounter for closed fracture (principal); X50.0XXA Overexertion from strenuous movement or load, initial encounter; W01.0XXA Fall on same level from slipping, tripping and stumbling without subsequent striking against object, initial encounter
CPT/HCPCS: 73560-TC-LT-FY; 73560-TC-RT-FY; 73610-TC-RT-FY; 73630-TC-RT-FY; 99285-25